=== PATIENT | female | born 1995 | race Caucasian/White ===

== ENCOUNTER 2019-11-24 11:59 | Emergency (ER) | payer BC, SELFPAY ==
[2019-11-24 12:02] VITALS: BP 154/88; PULSE 98; RESP 17; TEMP 36.5; O2SAT 96; BMI 46.3
--- NOTE | 2019-11-24 12:15 | US_ITS ---
STUDY: SECOND AND THIRD TRIMESTER OBSTETRICAL ULTRASOUND REASON FOR EXAM: Female, 24 years old SPOTTING AFTER A FALL ON 11/22/19 LMP: July 21, 2019. TECHNIQUE: Transabdominal and Transvaginal TECHNICAL QUALITY: Adequate. PRIOR ULTRASOUND: None. FINDINGS: There is a single intrauterine fetus. The fetus is in a breech presentation. There is demonstrated cardiac activity with a heart rate of 147 bpm. There is a normal amniotic fluid volume. The largest amniotic fluid pocket measures 4.8 cm by 4.8 cm. The amniotic fluid index (DOLORES) is within normal limits. The placenta is anterior in location and is not low lying. There are Grade 0 placental changes. The cervix measures 3.1 cm in length. The adnexal regions are not visualized. age by LMP: 18 weeks. US/OB Limited (No Biometrics) IMPRESSION: Normal appearing intrauterine gestation. Electronically Signed: Burke Lowery, at 13:32 EDT , Service support ,
--- NOTE | 2019-11-24 12:16 | ED.DCSUM_ITS ---
History of Present Illness Chief Complaint: Vag Bleeding Informant: Patient Onset: Today Current Severity: Mild Maximum Severity: Mild Narrative: Patient presents secondary to vaginal bleeding. She is currently 18 weeks . She had a fall down 3 steps on Sunday. She states her feet slipped and she landed on her buttocks and slid down a few steps. She was sore and had some mild cramping Sunday evening and Sunday. This morning after she urinated and wiped she noted a small amount of blood on the toilet paper. She states when she went to stand up and pull up her pants she noted her underwear was wet. She is not sure if she passed a little more urine or she might be leaking some fluid. She contacted her OBs office and [place] who told her to go to either [place] or [place] for monitoring of the baby. Patient chose to come to this hospital instead. Past Medical History - Allergies and Home Meds Allergies/Adverse Reactions: Allergies acetaminophen [From Vicodin] Allergy (Verified 11/24/19 12:01) Rash hydrocodone [From Vicodin] Allergy (Verified 11/24/19 12:01) Rash oxycodone [From Percocet] Allergy (Verified 11/24/19 12:01) Rash Primary Care Physician: Care Physician,No Primary [Primary Care Provider] - Doctors: Dr. Chow in [place] Past Medical History: None Lives: With Family Smoking Status: Never smoker Review of Systems General: Denies: Chills, Fever Eyes: Denies: Visual changes - bilaterally ENT: Denies: Bilateral ear pain Cardiovascular: Denies: Chest pain Respiratory: Denies: Dyspnea, Cough Gastrointestinal: Reports: Abdominal pain, Nausea. Denies: Vomiting, Diarrhea Genitourinary: Denies: Dysuria, Frequency Musculoskeletal: Denies: Extremity Pain Neurological: Denies: Headache Allergy: Denies: Uticaria Physical Exam Vital Signs/Narrative: Vital Signs Temp Pulse Resp BP Pulse Ox 11/24/19 12:02 97.7 F L 98 17 154/88 H 96 General: Well nourished, Well developed Head: Normocephalic ENT: Moist mucous membranes Neck: Supple Cardiovascular: Regular rate, Regular rhythm Respiratory: No distress, CTA bilaterally Abdomen: Soft, Nontender Extremities: Nontender Skin: Normal color, No rash Neurological: Alert, Oriented x3 Psychological: Normal affect Diagnostic/Tx/Re-eval Impressions Obstetrics Ultrasound 11/24/19 12:15 IMPRESSION: Normal appearing intrauterine gestation. Electronically Signed: Burke Lowery, at 13:32 EDT , Service support , 11/24/19 12:15 US OB [OB Limited] [US] Stat 11/24/19 12:40 Transvaginal w/Preg US [US] Stat Laboratory Results 11/24/19 11/24/19 11/24/19 00:25 12:25 13:00 WBC 6.9 RBC 4.83 Hgb 13.9 Hct 41.2 MCV 85.3 MCH 28.8 MCHC 33.7 RDW Std Deviation 43.4 RDW Coeff of Thierry 14.0 Plt Count 224 MPV 9.9 Immature Gran % (Auto) 0.600 Neut % (Auto) 58.1 Lymph % (Auto) 30.0 Douglas % (Auto) 10.2 H Eos % (Auto) 1.0 Baso % (Auto) 0.1 Absolute Neuts (auto) 4.0 Absolute Lymphs (auto) 2.06 Nucleated RBC % 0 Fibrinogen 516 H Blood Type A NEGATIVE - Medical Decision Making I spoke with Dr. Berg, [facility] TECHNICAL TRAINING INSTRUCTOR shortly after seeing the patient. She asked for a fibrinogen level in addition to ultrasound and CBC. She asked for call back with these results. Test results are discussed with her. At this time labs are unremarkable. Blood type is A- and she will be given RhoGam. Patient is reassured with these findings and will follow-up with her [facility] TECHNICAL TRAINING INSTRUCTOR. ED Disposition - Plan for ED Patient: Disposition: Home or Assisted Living Diagnosis: Threatened miscarriage Instructions: POSSIBLE MISCARRIAGE (Threatened ) Additional Instructions: Follow-up with Dr Chow.
[2019-11-24] MEDS: Acetaminophen 500 MG Tablet 1000 MG PO (12:23)
[2019-11-24 12:45] LABS: Absolute Lymphocyte Count 2.06 X10^3/uL (0.83-4.51); Basophil# 0.01 X10^3/uL; Basophil% 0.1 % (0-1); Eosinophil# 0.07 X10^3/uL; Hematocrit 41.2 % (37-47); Hemoglobin 13.9 g/dL (12.0-15.0); Lymphocyte # 2.06 X10^3/ul (4.0); Mean Corp Hgb Conc 33.7 g/dL (32-36); Mean Corpuscular Hgb 28.8 pg (27.0-32.0); Mean Corpuscular Volume 85.3 fL (81-99); Mean Platelet Vol. 9.9 fl (6.2-12.0); Monocyte% 10.2 % (0-10); NRBC Flagged by Analyzer 0 % (0-5); Neutrophil # 3.98 X10^3/uL (2.7-7.7); Neutrophil % 58.1 % (47-70); Platelet Count 224 K/mm3 (150-450); RBC Distribution Width SD 43.4 fl (35.1-43.9); Red Blood Count 4.83 M/mm3 (4.2-5.4); White Blood Count 6.9 K/mm3 (4.4-11.0)
[2019-11-24 13:17] LABS: Fibrinogen 516 mg/dl (203-444)
[2019-11-24 14:19] VITALS: BP 118/76; PULSE 88; RESP 18; O2SAT 96
== END 2019-11-24 16:04 | disposition home or self-care (01) ==
PROVIDERS: Emergency Provider Emergency Medicine
DX: O20.0 Threatened abortion (principal); Z3A.18 18 weeks gestation of pregnancy; Z88.5 Allergy status to narcotic agent
CPT/HCPCS: 76815; 76817; 85025; 85384; 85461; 86900; 86901; 90384; 96372; 99284; A4216; J2790

== ENCOUNTER 2020-02-02 17:00 | Outpatient (CLI) | payer BC, SELFPAY ==
[2020-02-02 17:12] VITALS: BP 125/62; PULSE 98; TEMP 36.5; O2SAT 97
[2020-02-02 17:13] VITALS: BMI 47.5
[2020-02-02 17:23] VITALS: BP 125/62; PULSE 98
[2020-02-02 17:26] VITALS: O2SAT 82
[2020-02-02 18:13] LABS: ROM Internal Control Test YES-OK TO RESULT pt. (Internal QC); ROM Patient Test Negative (Negative)
[2020-02-02 18:50] LABS: Group B Strep DNA By PCR Negative (Negative); Internal Control PASS; Probe Check PASS; Specimen Processing Control PASS
--- NOTE | 2020-02-03 08:04 | OB.TRI.HP_ITS ---
History of Present Illness Date of Service: 02/02/20 Was patient seen by the physician?: No Reason For Visit: RULE OUT LABOR Date of Service: 02/02/20 Final RILEY: 04/26/20 Gestational age: 28 Weeks and 1 Days History of Present Illness: 24yo @ 28.1 wks- was seen in office for ? LOF- Nitrazine was positive with negative Rapid BV, Neg Pooling, Neg ferning- here to confirm with ROM + is nega tive. Allergies hydrocodone [From Vicodin] Adverse Reaction (Verified 02/02/20 17:18) Nausea Laboratory Studies: Laboratory Tests 02/02/20 02/02/20 Range/Units 17:30 17:30 Vag Amniotic Fld Detect Negative (Negative) Group B Strep DNA Negative (Negative) Specimen Comment Not Reportable Physical Exam Vitals: Vital Signs Temp Pulse BP Pulse Ox 97.7 F L 98 125/62 H 82 02/02/20 17:12 02/02/20 17:23 02/02/20 17:23 02/02/20 17:26 NST - FHR Rate Baby A Baseline: 150 Variability:: Moderate Accelerations:: 10 x 10 Decelerations:: None NST Reactive:: Yes, Appropriate for gestational age FHR Category:: Category I Uterine Activity:: no ctx Impression/Plan 24yo @ 28.1 wks- Not in labor Dc home
== END 2020-02-02 18:30 | disposition home or self-care (01) ==
LOC: WPOUT 17:10 → WP 02-03 08:32
PROVIDERS: Visit Provider Obstetrics & Gynecology
DX: Z34.83 Encounter for supervision of other normal pregnancy, third trimester (principal); Z88.5 Allergy status to narcotic agent; Z3A.28 28 weeks gestation of pregnancy
CPT/HCPCS: 59025; 59050; 84112; 87081; 87653; 99218; G0378

== ENCOUNTER 2020-03-29 14:51 | Outpatient (CLI) | payer BC, SELFPAY ==
[2020-03-29] VITALS (9 sets, daily range): BP systolic 121–138; BP diastolic 67–75; PULSE 77–88; BMI 49.8
[2020-03-29 16:39] LABS: Hematocrit 40.3 % (37-47); Hemoglobin 13.7 g/dL (12.0-15.0); Mean Corpuscular Hgb 30.4 pg (27.0-32.0); Mean Corpuscular Volume 89.4 fL (81-99); Mean Platelet Vol. 11.3 fl (6.2-12.0); Platelet Count 237 K/mm3 (150-450); RBC Distribution Width CV 13.3 % (11.6-14.6); RBC Distribution Width SD 43.3 fl (35.1-43.9); Red Blood Count 4.51 M/mm3 (4.2-5.4); White Blood Count 10.8 K/mm3 (4.4-11.0)
[2020-03-29 16:40] LABS: Protein, Urine (Random) 9.3 mg/dL (<11.9); Protein:Creat Ratio 253 mg/g CRE (0-200)
[2020-03-29 16:52] LABS: AST(SGOT) 12 U/L (15-37); Alanine Aminotransfer ALT/SGPT 20 U/L (13-56); Creatinine, Serum 0.45 mg/dL (0.55-1.02); EST Glomerular Filtration Rate 178 mL/min (>60); Est Glom Filt Rate - Afr Amer 215 mL/min (>60); Estimated Creatinine Clearance 137.27 ml/min; Uric Acid 3.7 mg/dL (2.6-6.0)
[2020-03-29 16:58] LABS: International Normalized Ratio 0.9; Prothrombin Time (Protime)PT. 11.9 SECONDS (11.7-14.9)
[2020-03-29] MEDS: Betamethasone/Betamethasone 30 MG/5 ML Vial 12 MG IM (17:32)
--- NOTE | 2020-03-29 18:05 | OB.TRI.NOTE ---
- Problem List (1) Chronic hypertension affecting Status: Chronic (2) 36 weeks gestation of Status: Acute (3) Headache in Status: Acute History of Present Illness Date of Service: 03/29/20 Was patient seen by the physician?: Yes Reason For Visit: ELEVATED BP History of Present Illness: Presented to the office with a headache and elevated blood pressures. She was sent to labor and delivery for rule out preeclampsia. She reports her headache is now improving. She denies any vision changes, epigastric pain, right upper quadrant pain. She says overall she generally feels better. Allergies hydrocodone [From Vicodin] Adverse Reaction (Verified 03/29/20 15:20) Nausea Laboratory Studies: Laboratory Tests 03/29/20 03/29/20 03/29/20 Range/Units 16:10 16:10 16:10 WBC (4.4-11.0) K/mm3 RBC (4.2-5.4) M/mm3 Hgb (12.0-15.0) g/dL Hct (37-47) % MCV (81-99) fL MCH (27.0-32.0) pg MCHC (32-36) g/dL RDW Std Deviation (35.1-43.9) fl RDW Coeff of Thierry (11.6-14.6) % Plt Count (150-450) K/mm3 MPV (6.2-12.0) fl PT 11.9 (11.7-14.9) SECONDS INR 0.9 APTT 27.0 (24.1-36.2) Seconds Creatinine 0.45 L (0.55-1.02) mg/dL Estim Creat Clear Calc 137.27 ml/min Est GFR (MDRD) Af Amer 215 (>60) mL/min Est GFR (MDRD) Non-Af 178 (>60) mL/min Uric Acid 3.7 (2.6-6.0) mg/dL AST 12 L (15-37) U/L ALT 20 (13-56) U/L U Random Total Protein 9.3 (<11.9) mg/dL Urine Creatinine 36.70 (NO RANGE EST.) mg/dL Protein/Creatinin Ratio 253 H (0-200) mg/g CRE 03/29/20 Range/Units 16:10 WBC 10.8 (4.4-11.0) K/mm3 RBC 4.51 (4.2-5.4) M/mm3 Hgb 13.7 (12.0-15.0) g/dL Hct 40.3 (37-47) % MCV 89.4 (81-99) fL MCH 30.4 (27.0-32.0) pg MCHC 34.0 (32-36) g/dL RDW Std Deviation 43.3 (35.1-43.9) fl RDW Coeff of Thierry 13.3 (11.6-14.6) % Plt Count 237 (150-450) K/mm3 MPV 11.3 (6.2-12.0) fl PT (11.7-14.9) SECONDS INR APTT (24.1-36.2) Seconds Creatinine (0.55-1.02) mg/dL Estim Creat Clear Calc ml/min Est GFR (MDRD) Af Amer (>60) mL/min Est GFR (MDRD) Non-Af (>60) mL/min Uric Acid (2.6-6.0) mg/dL AST (15-37) U/L ALT (13-56) U/L U Random Total Protein (<11.9) mg/dL Urine Creatinine (NO RANGE EST.) mg/dL Protein/Creatinin Ratio (0-200) mg/g CRE Review of Systems Eyes: Denies: Blurred vision, Double vision, Vision Change HEENT: Reports: Head Aches Gastrointestinal: Denies: Abdominal Pain, Nausea, Vomiting Gynecological: Denies: Vaginal bleeding Physical Exam Vitals: Vital Signs Pulse BP 83 137/74 H 03/29/20 17:20 03/29/20 17:20 General: Alert, No apparent distress HEENT: Atraumatic Abdomen: Soft, Gravid Neurological: Neuro grossly intact NST - FHR Rate Baby A Variability:: Moderate Accelerations:: 15 x 15 Decelerations:: None NST Reactive:: Yes FHR Category:: Category I Impression/Plan Blood pressures are normal. Patient's headache is improving. Preeclampsia labs are within normal limits. Betamethasone x1 given. GBS collected. We will have her return to the office tomorrow for her second dose of betamethasone and a blood pressure check. To turn in 24-hour urine protein at that time.
[2020-03-29 19:37] LABS: Group B Strep DNA By PCR Negative (Negative); Internal Control PASS; Probe Check PASS; Specimen Processing Control PASS
== END 2020-03-29 18:00 | disposition home or self-care (01) ==
LOC: WPOUT 14:52 → WP 14:52
PROVIDERS: Referring Provider Obstetrics & Gynecology; Visit Provider Obstetrics & Gynecology
DX: O10.913 Unspecified pre-existing hypertension complicating pregnancy, third trimester (principal); R51 Headache; Z3A.36 36 weeks gestation of pregnancy
CPT/HCPCS: 36415; 59025; 59050; 82565; 82570; 84156; 84450; 84460; 84550; 85027; 85610; 85730; 87081; 87653; 96372; 99218; G0378; J0702

== ENCOUNTER 2020-04-05 05:09 | Inpatient (IN) | payer BC, SELFPAY ==
[2020-03-29 16:48] VITALS: BMI 49.8
--- NOTE | 2020-03-31 13:35 | HP.PCM_ITS ---
History and Physical Date of Admission: 04/05/20 HPI: The patient is a 24 year old female presenting for pre-operative visit. She is scheduled for?, for?prevoius c/s, 37 weeks, gestational hypertension on?04/05 or 04/06, to be scheduled. ??Procedure discussed along with risks, benefits and complications. ?Other alternatives discussed for management. Consent form signed??Yes.? PAST MEDICAL HISTORY PAST MEDICAL HISTORY Diagnosis Date ? Gestational hypertension ? ? 38wks IOL ? Other abnormal heart sounds ? ? PMH - PAST MEDICAL HISTORY OF 01/2002 ? normal color vision ? ? PAST SURGICAL HISTORY PAST SURGICAL HISTORY Procedure Laterality Date ? SECTION HX ? ? ? x1 failure to decend, gHTN ? TONSILLECTOMY HX ? CURRENT MEDICATIONS Current Outpatient Medications Medication Sig Dispense Refill ? PNV no.[id number] ( [id number]) 400 mcg-35 mg- 25 mg-5 mg chew Take by mouth once daily. ? ? ? No current facility-administered medications for this visit.? ? ALLERGIES:?Codeine ? PERSONAL HISTORY:? SOCIAL HISTORY Social History ? Tobacco Use ? Smoking status: Passive Smoke Exposure - Never Smoker ? Smokeless tobacco: Never Used ? Tobacco comment: parents smoke inside Substance Use Topics ? Alcohol use: No ? Drug use: No ? FAMILY HISTORY:? FAMILY HISTORY FAMILY HISTORY Problem Relation Age of Onset ? Hypertension Father ? ? Diabetes Maternal Grandfather ? ? Heart Maternal Grandfather ? ? Breast Cancer No Family History ? ? Ovarian cancer No Family History ? ? Uterine Cancer No Family History ? ? REVIEW OF SYMPTOMS: GENERAL: denies fevers or chills ENDOCRINOLOGY: has not been on steroids Cardiology : denies palpitations or chest pain Respiratory: denies SOB or cough Hematology: denies history of prolonged bleeding or easy bruising or VTE Allergy: Denies history of personal or family history of allergy to anesthesia ? ? PHYSICAL EXAMINATION: ? VITALS:?Blood pressure 148/78, last menstrual period 07/21/2019. ? GENERAL:??The patient is well nourished, well hydrated in no acute distress. ?, The patient is oriented to time, place, and person. NECK:?Supple. No lynphadenopathy, normal thyroid, no thyromegaly. LUNGS:?Clear to auscultation bilaterally. no wheezes, rhonchi or rales HEART:?Regular rate and rhythm, Normal heart sounds and No murmurs or gallops abd- soft, nontender, gravid ? ? IMPRESSION:?Estimated Date of Delivery: 04/26/20 w/ gest HTN, prevoius c/s ? PLAN:???The risks/benefits/alternatives and personal involved for the planned?c- section?were reviewed with the patient. Her questions were answered to her satisfaction and she desires to proceed. ?Consent was signed. ?I reviewed with her postop instructions and expectations. ? ? I have reviewed and updated past medical and surgical history, medications and allergies. This H&P was completed in my office on 03/30/2020.
[2020-04-05] VITALS (22 sets, daily range): BP systolic 92–143; BP diastolic 52–84; PULSE 18–97; RESP 14–20; TEMP 35.9–37; O2SAT 94–100; BMI 49.6
[2020-04-05] MEDS: Lactated Ringers 1,000 ML 999 ML IV (05:30)
[2020-04-05 05:37] LABS: Absolute Lymphocyte Count 3.99 X10^3/uL (0.83-4.51); Absolute Neutrophil Count 8.5 X10^3/uL (2.0-7.7); Basophil# 0.03 X10^3/uL; Basophil% 0.2 % (0-1); Eosinophil# 0.11 X10^3/uL; Eosinophils% 0.8 % (0-5); Hematocrit 40.3 % (37-47); Lymphocyte # 3.99 X10^3/ul (4.0); Mean Corp Hgb Conc 34.7 g/dL (32-36); Mean Corpuscular Hgb 30.8 pg (27.0-32.0); Mean Corpuscular Volume 88.8 fL (81-99); Mean Platelet Vol. 11.3 fl (6.2-12.0); NRBC Flagged by Analyzer 0 % (0-5); Neutrophil # 8.49 X10^3/uL (2.7-7.7); Neutrophil % 61.6 % (47-70); Platelet Count 242 K/mm3 (150-450); RBC Distribution Width CV 13.5 % (11.6-14.6); RBC Distribution Width SD 43.6 fl (35.1-43.9); Red Blood Count 4.54 M/mm3 (4.2-5.4); White Blood Count 13.8 K/mm3 (4.4-11.0)
[2020-04-05] MEDS: Acetaminophen 500 MG Tablet 1000 MG PO ×3 (05:51→18:27)
[2020-04-05] MEDS: Lactated Ringers 1,000 ML 150 ML IV (06:30)
[2020-04-05] MEDS: Sodium Citrate/Citric Acid 30 ML UDC PO (07:15)
[2020-04-05] MEDS: Cefazolin 2 GM in 0.9% Normal Saline 100 ML IV (07:35)
--- NOTE | 2020-04-05 08:24 | OP.PCM_ITS ---
Report of Operation Date of Procedure: 04/05/20 Delivery Classification: Scheduled Final RILEY Source: US <20 weeks wide area network systems administrator: Zayra Gallardo Type of Anesthesia:: General Special Medications: none Implants Used: none Date of Procedure: 04/05/20 Pre-Operative Diagnosis: 37 weeks, chronic HTN with increasing blood pressures Post-Operative Diagnosis: none Indications for : Repeat Elective Description of Procedure: The patient was taken to the operating room. She was prepped and draped in the dorsal supine position with a leftward tilt. A Pfannenstiel skin incision was made approximately 2 cm above the symphysis pubis and carried through to underlying layer fascia with the scalpel. The fascia was incised incised in the midline and extended laterally with the Dennis scissors. The fascia was dissected off the rectus muscles with blunt and sharp dissection. The rectus muscles were in the midline and the peritoneum was entered bluntly. The peritoneal incision was stretched and the bladder blade was placed. The uterine incision was made in a low transverse fashion with the scalpel and extended superiorly and inferiorly with blunt dissection. The amniotic membranes were ruptured bluntly and clear amniotic fluid returned. No significant intra-peritoneal adhesions. The infant's head was brought to the incision in the flexed position and delivered without difficulty. The remainder of the was delivered with gentle traction and fundal pressure in the standard fashion. The mouth and nares were bulb suctioned. The cord was clamped and cut as the infant was stimulated. Cord clamping was delayed. The infant was handed off to the waiting nursing staff. The placenta was delivered with fundal massage and gentle traction in the standard fashion. The uterus was exteriorized and cleared of all clots and debris. The cervix was dilated with a ring forcep. The uterine incision was closed with #1 Vicryl in a running locked fashion. A second layer of the same suture was used in an imbricating fashion. The incision was examined and was found to be hemostatic. The uterus was placed back into the peritoneal cavity and hemostasis was again confirmed. The rectus muscles were examined and any bleeding was Bovie cauterized. The parietal peritoneum and rectus muscles were closed en bloc with an 0 Vicryl running suture. The surgical teams outer gloves were then changed. The rectus fascia was examined and any bleeding was Bovie cauterized and the rectus fascia was closed with 1 PDS suture in a running standard fashion. The subcutaneous tissue was examining and any bleeding was Bovie cauterized. The subcutaneous tissue was reapproximated with 3-0 Vicryl suture. Some Allan was placed over each layer. The skin was closed in a subcuticular fashion by the SOLAR SALES AMBASSADOR with me present in the labor and delivery suite. I performed the remainder of the procedure with assistance. All sponge, lap, and needle counts were correct. The patient was taken to her room for recovery in a stable condition. Amniotic Membrane Rupture Type: Artificial Amniotic Fluid Description: Clear Placenta Disposition: [facility] Drain: Nesbitt to straight drain Fluids Replaced: 700 Cord Entanglement: None Cord Vessel Description: 3 Vessels Esitmated Blood Loss (ml): 800 Gender: Male (1 minute): 9 (5 minute): 9 Delayed cord clamping: Yes - Admit VTE Documentation VTE Present on Admission: No VTE Mechan Device Prophylaxis: SCD's VTE Pharm Prophylaxis ordered?: Yes
[2020-04-05] MEDS: Oxytocin 30 units/NS 500 ml 30 UNITS/500 ML IV.SOLN 167 UNITS IV (08:55)
[2020-04-05] MEDS: Ondansetron 4 MG/2 ML Vial IV (11:09)
[2020-04-05] MEDS: Lactated Ringers 1,000 ML 100 ML IV ×2 (12:05→20:54)
[2020-04-05] MEDS: proCHLORPERazine 10 MG/2 ML Vial IV (12:34)
[2020-04-05] MEDS: DiphenhydrAMINE 25 MG Capsule PO (13:49)
[2020-04-05] MEDS: Ketorolac 30 MG/ML Syringe IV ×2 (14:42→20:54)
[2020-04-05] MEDS: Metoclopramide 10 MG/2 ML Vial IV (15:17)
[2020-04-05] MEDS: Scopolamine 1mg/72hr Patch 1 PATCH TD (17:30)
[2020-04-05] MEDS: proMETHazine 25 MG/ML Syringe 6.25 MG IV (17:30)
[2020-04-05] MEDS: 0.9% Saline Lock 10 ML Syringe IV (20:54)
--- NOTE | 2020-04-05 21:25 | NURSING ---
This RN assuming care of patient and infant at this time. Report received from Brenda BELL.
--- NOTE | 2020-04-05 22:03 | NURSING ---
this rn gave report to aorr RN. that rn to assume care of pt at this time.
[2020-04-06] VITALS (9 sets, daily range): BP systolic 111–133; BP diastolic 62–70; PULSE 62–96; RESP 14–18; TEMP 36.6–36.9; O2SAT 95–99
[2020-04-06] MEDS: Acetaminophen 500 MG Tablet 1000 MG PO ×4 (00:12→18:35)
[2020-04-06] MEDS: 0.9% Saline Lock 10 ML Syringe IV ×3 (00:17→08:25)
[2020-04-06] MEDS: Ketorolac 30 MG/ML Syringe IV ×2 (02:27→08:24)
[2020-04-06 06:33] LABS: Hematocrit 36.4 % (37-47); Hemoglobin 12.2 g/dL (12.0-15.0); Mean Corp Hgb Conc 33.5 g/dL (32-36); Mean Corpuscular Hgb 30.6 pg (27.0-32.0); Mean Corpuscular Volume 91.2 fL (81-99); Mean Platelet Vol. 11.1 fl (6.2-12.0); Platelet Count 198 K/mm3 (150-450); RBC Distribution Width CV 13.9 % (11.6-14.6); RBC Distribution Width SD 46.4 fl (35.1-43.9); Red Blood Count 3.99 M/mm3 (4.2-5.4); White Blood Count 13.1 K/mm3 (4.4-11.0)
[2020-04-06] MEDS: Senna/Docusate Sodium 1 Tablet PO (08:25)
--- NOTE | 2020-04-06 08:34 | PN.OBGYN_ITS ---
Subjective: Pain controlled. Denies complaints. - Physical Exam Vitals/I&O's: Vital Signs Temp Pulse Resp BP Pulse Ox 98.1 F 78 16 111/66 98 04/06/20 03:30 04/06/20 06:01 04/06/20 06:01 04/06/20 03:30 04/06/20 06:01 Oxygen Delivery Method Room Air Weight: 254 lb 3.088 oz Body Mass Index (BMI) 49.6 Intake and Output for Last 24 Hours 04/04/20 04/05/20 04/06/20 23:59 23:59 23:59 Intake Total 2771.67 / 2771.67 435 / 435 Output Total 600 / 600 1200 / 1200 Balance 2171.67 / 2171.67 -765 / -765 General: Alert, Oriented x3 Abdomen: Soft, Non Tender, Non-Distended - ff mid & below umb; incision - bandage with scant dry blood, otherwise c/d/i Extremities: No Calf Tenderness - 1+ edema Laboratory Results 04/05/20 10:25: Screen NEGATIVE, Baby's Blood Type A POSITIVE, Baby's CHERI NEGATIVE 04/06/20 06:20: WBC 13.1 H, RBC 3.99 L, Hgb 12.2, Hct 36.4 L, MCV 91.2, MCH 30.6, MCHC 33.5, RDW Std Deviation 46.4 H, RDW Coeff of Thierry 13.9, Plt Count 198, MPV 11.1 Current Medications Acetaminophen (Tylenol) 1,000 mg PO Q6 [facility] Last Admin: 04/06/20 06:01 Dose: 1,000 mg Documented by: Bisacodyl (Dulcolax) 10 mg RECTAL UD PRN PRN Reason: If no BM Diphenhydramine HCl (Benadryl) 25 mg PO Q6H PRN PRN PRN Reason: ITCHING Stop: 04/06/20 09:12 Last Admin: 04/05/20 13:49 Dose: 25 mg Documented by: Hydrocortisone (Hytone) 1 applic TOPICAL TID PRN PRN; Protocol PRN Reason: Discomfort Naloxone HCl 4 mg/ Dextrose 504 mls @ 0 mls/hr IV .Q0M PRN; Protocol PRN Reason: To maintain Resp. rate >10 Ibuprofen (Motrin) 600 mg PO Q6H [facility] Methylergonovine Maleate (Methergine) 0.2 mg IM X1 PRN PRN Reason: Uterine Atony Metoclopramide HCl (Reglan) 10 mg IV Q4H PRN PRN PRN Reason: Nausea/Vomiting Last Admin: 04/05/20 15:17 Dose: 10 mg Documented by: Nalbuphine HCl (Nubain) 5 mg IV Q3H PRN PRN PRN Reason: ITCHING Stop: 04/06/20 09:12 Naloxone HCl (Narcan) 0.02 mg IV Q1M PRN PRN Reason: RR< 10 AND PT UNRESPONSIVE Ondansetron HCl (Zofran) 4 mg IV Q4H PRN PRN PRN Reason: Nausea Last Admin: 04/05/20 11:09 Dose: 4 mg Documented by: Oxycodone HCl (Oxyir) 5 - 10 mg PO Q4H PRN PRN PRN Reason: Pain Score 4-10/10 Prochlorperazine Edisylate (Compazine Iv) 10 mg IV Q6H PRN PRN PRN Reason: NAUSEA Last Admin: 04/05/20 12:34 Dose: 10 mg Documented by: Scopolamine HBr (Transderm-Scop) 1 patch TD Q3D [facility] Last Admin: 04/05/20 17:30 Dose: 1 patch Documented by: Senna/Docusate Sodium (Senokot-S, Sara-Colace) 0 tablet PO DAILY [facility] Last Admin: 04/06/20 08:25 Dose: 1 tablet Documented by: Simethicone (Mylicon) 80 mg PO PCHS PRN PRN Reason: Indigestion/stomach pain Sodium Chloride () 5 - 15 ml IV UD PRN PRN Reason: SALINE FLUSH Last Admin: 04/06/20 08:25 Dose: 10 ml Documented by: Medical Necessity - Tobacco Use Smoking Status: Never smoker Assessment/Plan All Active Problems 36 weeks gestation of (Acute) Headache in (Acute) POD#1 Heme - HDS, CBC reviewed IF - AF, no signs infection - adequate UOP GI - ADAT Gestational hypertension - BP's normal Routine care
[2020-04-06] MEDS: Ibuprofen 600 MG Tablet PO ×2 (16:22→23:36)
[2020-04-07] MEDS: Acetaminophen 500 MG Tablet 1000 MG PO ×3 (00:14→12:24)
[2020-04-07 01:10] VITALS: BP 124/69; PULSE 89; RESP 16; TEMP 36.9
[2020-04-07] MEDS: Ibuprofen 600 MG Tablet PO ×2 (05:42→12:14)
--- NOTE | 2020-04-07 08:07 | PN.OBGYN_ITS ---
Subjective: Patient seen at bedside, doing well. Patient denies any chest pain, shortness of breath, dizziness. She reports intermittent headaches but nothing significant. She denies any visual changes. She reports voiding without difficulty, passing flatus, mild lochia. - Physical Exam Vitals/I&O's: Vital Signs Temp Pulse Resp BP Pulse Ox 98.5 F 89 16 124/69 H 96 04/07/20 01:10 04/07/20 01:10 04/07/20 01:10 04/07/20 01:10 04/06/20 08:30 Oxygen Delivery Method Room Air Weight: 115.3 kg Body Mass Index (BMI) 49.6 Intake and Output for Last 24 Hours 04/05/20 04/06/20 04/07/20 23:59 23:59 23:59 Intake Total 2771.67 / 2771.67 435 / 435 Output Total 600 / 600 1400 / 1400 Balance 2171.67 / 2171.67 -965 / -965 General: Alert, Oriented x3 Abdomen: Soft, Non Tender, Non-Distended, Passing Flatus, - - fundus firm. Dressig dry and intact Extremities: No Calf Tenderness Current Medications Acetaminophen (Tylenol) 1,000 mg PO Q6 [facility] Last Admin: 04/07/20 06:23 Dose: 1,000 mg Documented by: Bisacodyl (Dulcolax) 10 mg RECTAL UD PRN PRN Reason: If no BM Hydrocortisone (Hytone) 1 applic TOPICAL TID PRN PRN; Protocol PRN Reason: Discomfort Naloxone HCl 4 mg/ Dextrose 504 mls @ 0 mls/hr IV .Q0M PRN; Protocol PRN Reason: To maintain Resp. rate >10 Ibuprofen (Motrin) 600 mg PO Q6 [facility] Last Admin: 04/07/20 05:42 Dose: 600 mg Documented by: Methylergonovine Maleate (Methergine) 0.2 mg IM X1 PRN PRN Reason: Uterine Atony Metoclopramide HCl (Reglan) 10 mg IV Q4H PRN PRN PRN Reason: Nausea/Vomiting Last Admin: 04/05/20 15:17 Dose: 10 mg Documented by: Naloxone HCl (Narcan) 0.02 mg IV Q1M PRN PRN Reason: RR< 10 AND PT UNRESPONSIVE Ondansetron HCl (Zofran) 4 mg IV Q4H PRN PRN PRN Reason: Nausea Last Admin: 04/05/20 11:09 Dose: 4 mg Documented by: Oxycodone HCl (Oxyir) 5 - 10 mg PO Q4H PRN PRN PRN Reason: Pain Score 4-10/10 Prochlorperazine Edisylate (Compazine Iv) 10 mg IV Q6H PRN PRN PRN Reason: NAUSEA Last Admin: 04/05/20 12:34 Dose: 10 mg Documented by: Scopolamine HBr (Transderm-Scop) 1 patch TD Q3D [facility] Last Admin: 04/05/20 17:30 Dose: 1 patch Documented by: Senna/Docusate Sodium (Senokot-S, Sara-Colace) 0 tablet PO DAILY [facility] Last Admin: 04/06/20 08:25 Dose: 1 tablet Documented by: Simethicone (Mylicon) 80 mg PO PCHS PRN PRN Reason: Indigestion/stomach pain Last Admin: 04/07/20 06:27 Dose: 80 mg Documented by: Sodium Chloride () 5 - 15 ml IV UD PRN PRN Reason: SALINE FLUSH Last Admin: 04/06/20 08:25 Dose: 10 ml Documented by: Medical Necessity - Tobacco Use Smoking Status: Never smoker Assessment/Plan All Active Problems 36 weeks gestation of (Acute) Headache in (Acute) POD#2, doing well- GEST HTN routine care pain mgmt dc home
[2020-04-07 08:10] VITALS: BP 137/76; PULSE 77; RESP 16; TEMP 36.4
--- NOTE | 2020-04-07 08:10 | DS.PCM_ITS ---
Discharge Summary Date of Admission: 04/05/20 Date of Discharge: 04/07/20 Summary: She was admitted for a scheduled repeat Low transverse at 37 weeks gestation due to Gest HTN on 04/05/[address] Liao. Had an uncomplicated postoperative course and was discharged home on postoperative day #2. - Physical Exam Vitals/I&O's: Vital Signs Temp Pulse Resp BP Pulse Ox 98.5 F 89 16 124/69 H 96 04/07/20 01:10 04/07/20 01:10 04/07/20 01:10 04/07/20 01:10 04/06/20 08:30 Oxygen Delivery Method Room Air Weight: 115.3 kg Body Mass Index (BMI) 49.6 Intake and Output for Last 24 Hours 04/05/20 04/06/20 04/07/20 23:59 23:59 23:59 Intake Total 2771.67 / 2771.67 435 / 435 Output Total 600 / 600 1400 / 1400 Balance 2171.67 / 2171.67 -965 / -965 Current Medications Acetaminophen (Tylenol) 1,000 mg PO Q6 [facility] Last Admin: 04/07/20 06:23 Dose: 1,000 mg Documented by: Bisacodyl (Dulcolax) 10 mg RECTAL UD PRN PRN Reason: If no BM Hydrocortisone (Hytone) 1 applic TOPICAL TID PRN PRN; Protocol PRN Reason: Discomfort Naloxone HCl 4 mg/ Dextrose 504 mls @ 0 mls/hr IV .Q0M PRN; Protocol PRN Reason: To maintain Resp. rate >10 Ibuprofen (Motrin) 600 mg PO Q6 [facility] Last Admin: 04/07/20 05:42 Dose: 600 mg Documented by: Methylergonovine Maleate (Methergine) 0.2 mg IM X1 PRN PRN Reason: Uterine Atony Metoclopramide HCl (Reglan) 10 mg IV Q4H PRN PRN PRN Reason: Nausea/Vomiting Last Admin: 04/05/20 15:17 Dose: 10 mg Documented by: Naloxone HCl (Narcan) 0.02 mg IV Q1M PRN PRN Reason: RR< 10 AND PT UNRESPONSIVE Ondansetron HCl (Zofran) 4 mg IV Q4H PRN PRN PRN Reason: Nausea Last Admin: 04/05/20 11:09 Dose: 4 mg Documented by: Oxycodone HCl (Oxyir) 5 - 10 mg PO Q4H PRN PRN PRN Reason: Pain Score 4-10/10 Prochlorperazine Edisylate (Compazine Iv) 10 mg IV Q6H PRN PRN PRN Reason: NAUSEA Last Admin: 04/05/20 12:34 Dose: 10 mg Documented by: Scopolamine HBr (Transderm-Scop) 1 patch TD Q3D [facility] Last Admin: 04/05/20 17:30 Dose: 1 patch Documented by: Senna/Docusate Sodium (Senokot-S, Sara-Colace) 0 tablet PO DAILY [facility] Last Admin: 04/06/20 08:25 Dose: 1 tablet Documented by: Simethicone (Mylicon) 80 mg PO PCHS PRN PRN Reason: Indigestion/stomach pain Last Admin: 04/07/20 06:27 Dose: 80 mg Documented by: Sodium Chloride () 5 - 15 ml IV UD PRN PRN Reason: SALINE FLUSH Last Admin: 04/06/20 08:25 Dose: 10 ml Documented by:
--- NOTE | 2020-04-07 08:14 | DCINST_ITS ---
Discharge Diet: No Restrictions Discharge Activity: Return to Normal Activity, May Not Drive - for 2 weeks, May not drive while taking narcotic pain medications., May Shower, May Take a Tub Bath - in 7 days. May resume sexual activity in: 4-6 weeks Lifting Restrictions: 20 pounds Additional Activity Instructions:: Nothing in the vagina for 4-6 weeks. You may return to work/school in 6 weeks. Call your doctor if your incision/area has: Continuous Slow Oozing, Sudden Increased Bleeding, Increased Pain/ Swelling, Increased Redness, Foul Smelling Discharge Call your doctor if you observe: Fever of 101 or Higher, Using more than one pad per hour - for 2 hours Suture Line Care: Avoid Pulling/Pushing, Avoid Pinching/Bending Cleanse incision/area with: Keep Dressing Clean & Dry Additional Instructions: If you experience any of the following, contact your healthcare provider. * Bleeding that soaks a pad every hour for 2 hours * Fever 100.4 or higher * Unrelieved incision or abdominal pain * Swelling, redness, discharge or bleeding from your incision or episiotomy site * Your incision begins to separate * Problems urinating (including inability to urinate or burning while urinating). * Visual changes * Severe headache * Flu-like symptoms * Pain or redness in one of both of your breasts * Pain, warmth, tenderness or swelling in your legs, especially the calf area * Frequent nausea and vomiting * Symptoms of depression or anxiety If you experience any of the following, call 911 or go to the nearest Emergency Room. * Chest pain * Problems breathing * Seizure activity * Partial or complete paralysis of a body part, slurred speech, weakness or drooping of the face, or a sudden inability to walk or hold your balance Allergies/Adverse Reactions: Allergies hydrocodone [From Vicodin] Adverse Reaction (Verified 04/05/20 05:25) Nausea Medications to take at [facility]/Ferr[facility] Fum/Folic AC [ Caplet] 1 ea PO DAILY 11/24/19 Acetaminophen [Tylenol] 1,000 mg PO Q6 #60 tab 04/07/20 Ibuprofen [Motrin] 600 mg PO Q6 #60 tab 04/07/20 Senna/Docusate Sodium [Senokot-S] 1 tab PO DAILY #30 tab 04/07/20 SimETHICONE [Mylicon] 80 mg PO [facility] PRN #30 tab 04/07/20 The following prescriptions were given: Ibuprofen [Motrin] 600 mg PO Q6 #60 tab Transmission Status: Pending to [email or web address] #[email or web address] SimETHICONE [Mylicon] 80 mg PO [facility] PRN #30 tab PRN Reason: Indigestion/stomach pain Transmission Status: Pending to [facility] #[facility] Senna/Docusate Sodium [Senokot-S] 1 tab PO DAILY #30 tab Transmission Status: Pending to [facility] #[facility] Acetaminophen [Tylenol] 1,000 mg PO Q6 #60 tab Transmission Status: Pending to [email or web address] #[email or web address] Follow-Up: Call to make an appointment with your doctor for an incision check in 1-2 weeks. You will also need a 6 week post- follow up appointment. Test results from this visit will be discussed in further detail at your follow- up appointment, if applicable. Please Follow Up With: Diana Banks MD - Call to make an appointment for an incision check in 1-2 [phone] When: You will need a post- check in 6 weeks. Primary Care Physician: Care Physician,No Primary [Primary Care Provider] -
[2020-04-07] MEDS: Senna/Docusate Sodium 1 Tablet PO (12:13)
[2020-04-07 12:16] VITALS: BP 146/79; PULSE 94; RESP 18; TEMP 37.1
== END 2020-04-07 13:50 | disposition home or self-care (01) | DRG 788 ==
PROVIDERS: Obstetrics & Gynecology; Admitting Provider Obstetrics & Gynecology; Referring Provider Obstetrics & Gynecology; Visit Provider Obstetrics & Gynecology
PROC: 10D00Z1 Extraction of Products of Conception, Low, Open Approach (ICD-10-PCS; CPT 59514; principal; 2020-04-05 07:15)
DX: O34.211 Maternal care for low transverse scar from previous cesarean delivery (principal); O13.4 Gestational [pregnancy-induced] hypertension without significant proteinuria, complicating childbirth; Z77.22 Contact with and (suspected) exposure to environmental tobacco smoke (acute) (chronic); Z3A.37 37 weeks gestation of pregnancy; Z37.0 Single live birth
CPT/HCPCS: 36415; 85025; 85027; 85461; 86850; 86900; 86901; 87635; 90384; 99218; G2023; J7120; A4216; G0378; J2405; J2790; U0003